=== PATIENT | female | born 1945 | race Caucasian/White ===

== ENCOUNTER 2025-07-28 09:21 | Inpatient (IN) | payer MEDICARE ==
[2025-07-28] VITALS (15 sets, daily range): BP systolic 105–175; BP diastolic 48–99; PULSE 53–84; RESP 14–22; TEMP 97.9–98.9; O2SAT 97–100
[~2025-07-28] VITALS: Ht 157.5 cm; Wt 76.5 kg
[2025-07-28] MEDS ORDERED: SODIUM CHLORIDE 0.9% 100 ML ONE ×2 (09:42→14:54)
[2025-07-28] MEDS ORDERED: IOPAMIDOL 370 MG/ML 100 ML INFUS..BTL INJ ONE ×2 (09:42→14:54)
[2025-07-28 10:33] LABS: BASOPHILS % 0.8 % (0.0-1.0); EOSINOPHILS % 0.6 % (0.0-6.0); LYMPHOCYTES % 25.1 % (18.0-39.1); MONOCYTES % 9.3 % (4.4-11.3); NEUTROPHILS % 64.0 % (38.7-80.0); RED CELL DISTRIBUTION WIDTH 13.0 % (11.7-14.4)
[2025-07-28] MEDS ORDERED: TENECTEPLASE FOR IV SOLN 50 MG KIT IV ONE (10:45)
[2025-07-28] MEDS: SODIUM CHLORIDE 0.9% 500ML 500 ML IV ONE (11:15)
[2025-07-28] MEDS: NICARDIPINE 20MG/200ML PREMIX 200 ML IV SCH (11:34)
[2025-07-28 11:36] LABS: INR 1.01
[2025-07-28] MEDS: TENECTEPLASE FOR IV SOLN 50 MG KIT IV ONE (11:50)
[2025-07-28 12:44] LABS: LEUKOCYTE ESTERASE ,URINE SMALL (NEGATIVE); PROTEIN,URINE DIPSTICK NEGATIVE (NEGATIVE)
[2025-07-28 12:45] LABS: URINE UROBILINOGEN 0.2 mg/dL (0.2 - 1)
[2025-07-28 12:54] LABS: WBC,URINE (MAN) 0-5 /HPF (0-5)
[2025-07-28 13:02] LABS: EST GLOMERULAR FILTRATION RATE 87.0 ML/MIN (>=60)
[2025-07-28] MEDS: SODIUM CHLORIDE 0.9% 1000ML 1,000 ML IV SCH (15:51)
[2025-07-28] MEDS ORDERED: COREG12.5 MG PO (16:48)
[2025-07-28] MEDS ORDERED: BUPROPION XL150 MG PO (16:48)
[2025-07-28] MEDS ORDERED: FAMOTIDINE20 MG PO (16:48)
[2025-07-28] MEDS ORDERED: ULTRAM 50MG50 MG PO (16:48)
[2025-07-28] MEDS ORDERED: OMEPRAZOLE40 MG PO (16:48)
[2025-07-28] MEDS ORDERED: ALPRAZOLAM0.25 MG PO (16:48)
[2025-07-28] MEDS ORDERED: VENLAFAXINE HCL75 MG PO (16:48)
[2025-07-28] MEDS: DEXMEDETOMIDINE 400MCG/NS100ML 100 ML IV PRN (18:59)
[2025-07-28] MEDS ORDERED: TRAMADOL HCL 50 MG TAB PO PRN (20:15)
[2025-07-28] MEDS ORDERED: ALPRAZOLAM 0.25 MG TAB PO PRN (20:15)
[2025-07-28] MEDS ORDERED: ACETAMINOPHEN 325 MG TAB PO PRN (20:15)
[2025-07-28] MEDS: CARVEDILOL 12.5 MG TAB PO SCH (21:41)
[2025-07-29] VITALS (40 sets, daily range): BP systolic 93–211; BP diastolic 49–111; PULSE 48–92; RESP 14–30; TEMP 97.9–98.4; O2SAT 99–100
[2025-07-29 04:32] LABS: CHOL/HDL RATIO 4.1 (3.0-3.6); EST GLOMERULAR FILTRATION RATE 92.0 ML/MIN (>=60); LDL CHOLESTEROL 141.0 MG/DL (60-130)
[2025-07-29 07:31] LABS: BASOPHILS % 0.5 % (0.0-1.0); EOSINOPHILS % 1.1 % (0.0-6.0); LYMPHOCYTES % 25.0 % (18.0-39.1); MONOCYTES % 13.4 % (4.4-11.3); NEUTROPHILS % 59.8 % (38.7-80.0); RED CELL DISTRIBUTION WIDTH 12.9 % (11.7-14.4)
[2025-07-29] MEDS: BUPROPION HCL 150 MG TABCR PO SCH (08:24)
[2025-07-29] MEDS ORDERED: ZIPRASIDONE 20 MG VIAL IM ONE (09:00)
[2025-07-29] MEDS: LACTATED RINGER'S 1,000 ML INJ ONE (09:05)
[2025-07-29] MEDS: LORAZEPAM INJ 2 MG/ML VIAL IV PRN (09:05)
[2025-07-29] MEDS: HYDRALAZINE HCL 20 MG/ML VIAL IV PRN (10:36)
[2025-07-29] MEDS: DEXMEDETOMIDINE 400MCG/NS100ML 100 ML IV PRN (16:17)
[2025-07-29] MEDS ORDERED: VENLAFAXINE HCL 75 MG TAB PO SCH (17:00)
[2025-07-30] VITALS (23 sets, daily range): BP systolic 123–201; BP diastolic 60–143; PULSE 34–86; RESP 13–26; TEMP 97.2–98.4; O2SAT 72–100
[2025-07-30] MEDS: ZIPRASIDONE 20 MG VIAL IM STA (16:14)
[2025-07-30] MEDS: WATER STERILE 10 ML VIAL INJ ONE (16:15)
[2025-07-30] MEDS: LACTATED RINGER'S 1,000 ML INJ SCH (17:23)
[2025-07-31] VITALS (27 sets, daily range): BP systolic 111–203; BP diastolic 46–130; PULSE 46–87; RESP 15–28; TEMP 97–100.2; O2SAT 84–100
[2025-07-31 06:10] LABS: BASOPHILS % 0.4 % (0.0-1.0); EOSINOPHILS % 0.1 % (0.0-6.0); LYMPHOCYTES % 11.0 % (18.0-39.1); MONOCYTES % 11.1 % (4.4-11.3); NEUTROPHILS % 77.1 % (38.7-80.0); RED CELL DISTRIBUTION WIDTH 12.8 % (11.7-14.4)
[2025-07-31 06:38] LABS: EST GLOMERULAR FILTRATION RATE 91.0 ML/MIN (>=60); PHOSPHORUS 3.3 MG/DL (2.3-4.7)
[2025-07-31] MEDS: ZIPRASIDONE 20 MG VIAL IM STA (07:43)
[2025-07-31] MEDS ORDERED: POTASSIUM CHLORIDE 20MEQ/100ML 100 ML IV ONE (08:00)
[2025-07-31] MEDS: POTASSIUM CHLORIDE 10MEQ/100ML 100 ML IV SCH (17:33)
[2025-07-31] MEDS: ONDANSETRON HCL INJ 2MG/ML 2ML 2 MG/ML VIAL IV PRN (20:13)
[2025-07-31] MEDS: ATORVASTATIN 40 MG TAB PO SCH (21:00)
[2025-08-01] VITALS (9 sets, daily range): BP systolic 117–227; BP diastolic 57–191; PULSE 51–88; RESP 16–24; O2SAT 94–100
[2025-08-01] MEDS: LABETALOL HCL 5 MG/ML 20ML VIAL IV PRN (05:12)
[2025-08-01] MEDS ORDERED: PROPOFOL IV EMULSION 10MG/ML 100 ML ONE (07:55)
[2025-08-01] MEDS ORDERED: FENTANYL 2000MCG/NS 250 250 ML ONE (07:56)
[2025-08-01 08:12] LABS: BASOPHILS % 0.4 % (0.0-1.0); EOSINOPHILS % 0.3 % (0.0-6.0); LYMPHOCYTES % 28.8 % (18.0-39.1); MONOCYTES % 5.7 % (4.4-11.3); NEUTROPHILS % 64.1 % (38.7-80.0); RED CELL DISTRIBUTION WIDTH 12.8 % (11.7-14.4)
[2025-08-01] MEDS ORDERED: SODIUM CHLORIDE 0.9% 1000ML 1,000 ML ONE (08:22)
[2025-08-01 08:25] LABS: EST GLOMERULAR FILTRATION RATE 84.0 ML/MIN (>=60)
[2025-08-01] MEDS ORDERED: IOPAMIDOL 370 MG/ML 100 ML INFUS..BTL INJ ONE (08:28)
[2025-08-01] MEDS ORDERED: LIDOCAINE HCL 1% LOCAL INJ 20 ML VIAL ONE (08:28)
[2025-08-01] MEDS ORDERED: HEPARIN SOD/SOD CHLORIDE 2,000 ML ONE (08:28)
[2025-08-01] MEDS ORDERED: NOREPINEPHRINE 8 MG/D5W 250 ML 250 ML ONE (08:34)
[2025-08-01] MEDS ORDERED: NOREPINEPHRINE 8 MG/D5W 250 ML 250 ML IV SCH (08:35)
[2025-08-01] MEDS: MIDAZOLAM HCL 2 MG/2 ML VIAL IV STA (08:52)
[2025-08-01] MEDS: PROPOFOL IV EMULSION 10MG/ML 100 ML IV PRN (08:53)
[2025-08-01] MEDS: MIDAZOLAM HCL 2 MG/2 ML VIAL ONE (08:53)
[2025-08-01] MEDS: FENTANYL 2000MCG/NS 250 250 ML IV PRN (08:54)
[2025-08-01] MEDS ORDERED: ASPIRIN 81 MG CHEW TAB PO SCH (09:00)
[2025-08-01 11:18] LABS: BAND NEUTROPHILS % (MANUAL) 3 %; EOSINOPHILS % (MANUAL) 1 % (0-7); LYMPHOCYTES % (MANUAL) 28 % (19-48); MONOCYTES % (MANUAL) 8 % (3.4-9.0); NEUTROPHILS % (MANUAL) 60 % (40-74); PLATELET ESTIMATE ADEQUATE; PLATELET MORPHOLOGY COMMENT NORMAL
[2025-08-06 06:54] LABS: ABG BASE EXCESS -8.0 mmol/L (-2 - 3); ABG HCO3 19 mmol/L (22-26); ABG OXYGEN SATURATION 30.0 % (95-98); ABG PCO2 42 mmHg (35-45); ABG PH 7.26 (7.35-7.45); ABG PO2 22 mmHg (80-105); ABG TCO2 20
== END 2025-08-01 12:32 | disposition expired | DRG 61 ==
LOC: ER 09:37 → ERHOLD 11:35 → ICU 15:30
PROVIDERS: ADMIT Internal Medicine; ATTEND Internal Medicine
PROC: 3E03317 Introduction of Other Thrombolytic into Peripheral Vein, Percutaneous Approach (ICD-10-PCS; principal; 2025-07-28)
PROC: 4A133R1 Monitoring of Arterial Saturation, Peripheral, Percutaneous Approach (ICD-10-PCS; 2025-08-01)
PROC: 02HV33Z Insertion of Infusion Device into Superior Vena Cava, Percutaneous Approach (ICD-10-PCS; 2025-08-01)
PROC: 5A2204Z Restoration of Cardiac Rhythm, Single (ICD-10-PCS; 2025-08-01)
PROC: 3E033XZ Introduction of Vasopressor into Peripheral Vein, Percutaneous Approach (ICD-10-PCS; 2025-08-01)
PROC: 0BH17EZ Insertion of Endotracheal Airway into Trachea, Via Natural or Artificial Opening (ICD-10-PCS; 2025-08-01)
PROC: 5A1935Z Respiratory Ventilation, Less than 24 Consecutive Hours (ICD-10-PCS; 2025-08-01)
DX: I63.511 Cerebral infarction due to unspecified occlusion or stenosis of right middle cerebral artery (principal); G92.8 Other toxic encephalopathy; I21.19 ST elevation (STEMI) myocardial infarction involving other coronary artery of inferior wall; J96.00 Acute respiratory failure, unspecified whether with hypoxia or hypercapnia; I44.2 Atrioventricular block, complete; E87.20 Acidosis, unspecified; F03.911 Unspecified dementia, unspecified severity, with agitation; F03.92 Unspecified dementia, unspecified severity, with psychotic disturbance; F03.94 Unspecified dementia, unspecified severity, with anxiety; F03.93 Unspecified dementia, unspecified severity, with mood disturbance; I46.2 Cardiac arrest due to underlying cardiac condition; R29.716 NIHSS score 16; R29.810 Facial weakness; I10 Essential (primary) hypertension; R47.1 Dysarthria and anarthria; R47.01 Aphasia; R00.1 Bradycardia, unspecified; I44.0 Atrioventricular block, first degree; D64.9 Anemia, unspecified; K21.9 Gastro-esophageal reflux disease without esophagitis
CPT/HCPCS: 31500; 36415; 36600; 70450; 70496; 70498; 71045; 80048; 80053; 80061; 81001; 82607; 82746; 82805; 82948; 83036; 83735; 84100; 84443; 84484; 85025; 85610; 85730; 87086; 92950; 93005; 93306; 93880; 94002; 94003; 94799; 99252; 99284; J0360; J2003; J2060; J2250; J2405; J2470; J3101; J3480; J3486; J7030; J7040; J7050; Q9967